=== PATIENT | female | born 1960 | race Caucasian/White ===

== ENCOUNTER → 2018-05-03 | Outpatient (CLI) | payer OTHER | END | disposition home or self-care (01) | LOC: CFH 06:47 | PROVIDERS: ATTEND Family Medicine | DX: M51.36 Other intervertebral disc degeneration, lumbar region (principal); M43.26 Fusion of spine, lumbar region; M48.061 Spinal stenosis, lumbar region without neurogenic claudication; M46.86 Other specified inflammatory spondylopathies, lumbar region; R60.9 Edema, unspecified | CPT/HCPCS: 72148 ==